=== PATIENT | female | born 1965 | race Caucasian/White ===

== ENCOUNTER → 2016-10-02 | Outpatient (CLI) | payer OTHER ==
--- NOTE | 2016-10-02 09:48 | WOMENS IMAGING REPORT ---
EXAM DESCRIPTION: BILAT SCREENING MAMMO W/CAD COMPLETED DATE/TIME: 10/02/2016 8:30 am REASON FOR STUDY: Z12.31, ROUTINE SCREENING MAMMO Z12.31 ENCNTR SCREEN MAMMOGRAM FOR MALIGNANT NEOP LASM OF JONAS COMPARISON: 09/29/2015 and 09/27/2014. TECHNIQUE: Standard craniocaudal and mediolateral oblique views of each breast recorded using digita l acquisition. LIMITATIONS: None. FINDINGS: No masses, calcifications or architectural distortion. No areas of suspicion. Read with the assistance of CAD. .[facility] - R2 Cenova Version 1.3 .[facility] - R2 Cenova Version 1.3 .[facility] - R2 Cenova Version 2.4 [place] [place] Cenova Version 2.4 .[facility] - R2 [employer] Version 9.2 IMPRESSION: NORMAL MAMMOGRAM. BIRADS 1. BREAST DENSITY: b. There are scattered areas of fibroglandular density. BIRAD: 1 NEGATIVE RECOMMENDATION: ROUTINE SCREENING COMMENT: The patient has been notified of the results by letter per MQSA requirements. Additional no tification policies are in place for contacting patient with suspicious or incomplete findings. Quality ID #225: The [employer] recommends an annual screening mammogram for women aged 40 years or over. This facility utilizes a reminder system to ensure that all patients receive reminder letters, and/or direct phone calls for appointments. This includes reminders for routine scr eening mammograms, diagnostic mammograms, or other Breast Imaging Interventions when appropriate. Th is patient will be placed in the appropriate reminder system. The [employer] (ACR) has developed recommendations for screening MRI of the breast s in certain patient populations, to be used in conjunction with mammography. Breast MRI surveillanc e may be appropriate for women with more than 20% lifetime risk of developing breast cancer as deter mined by genetic testing, significant family history of the disease, or history of mantle radiation f or Hodgkins Disease. ACR Practice Guidelines 2008. TECHNICAL DOCUMENTATION: FINDING NUMBER: (1) ASSESSMENT: (1) JOB ID: [id number] [employer]- All Rights Reserved
== END ==
LOC: WI 07:45
PROVIDERS: ATTEND Nurse Practitioner
DX: Z12.31 Encounter for screening mammogram for malignant neoplasm of breast (principal)
CPT/HCPCS: 77067; G0202

== ENCOUNTER → 2017-10-09 | Outpatient (CLI) | payer OTHER ==
--- NOTE | 2017-10-09 09:49 | WOMENS IMAGING REPORT ---
EXAM DESCRIPTION: BILAT SCREENING MAMMO W/CAD COMPLETED DATE/TIME: 10/09/2017 7:43 am REASON FOR STUDY: SCREENING MAMMO Z12.31 ENCNTR SCREEN MAMMOGRAM FOR MALIGNANT NEOPLASM OF JONAS COMPARISON: Multiple since 2008 TECHNIQUE: Standard craniocaudal and mediolateral oblique views of each breast recorded using digita l acquisition. LIMITATIONS: None. FINDINGS: No masses, calcifications or architectural distortion. No areas of suspicion. Read with the assistance of CAD. .[facility] - R2 Cenova Version 1.3 .[facility] Imaging - R2 Cenova Version 1.3 .[facility] - R2 Cenova Version 2.4 .[facility] [place] Cenova Version 2.4 .[facility] - R2 Senior Resident Care Director Version 9.2 IMPRESSION: NORMAL MAMMOGRAM. BIRADS 1. BREAST DENSITY: b. There are scattered areas of fibroglandular density. BIRAD: 1 NEGATIVE RECOMMENDATION: ROUTINE SCREENING Please continue yearly bilateral screening mammography/tomosynthesis in September 2018. COMMENT: The patient has been notified of the results by letter per SA requirements. Additional no tification policies are in place for contacting patient with suspicious or incomplete findings. Quality ID #[id number]: The [employer] recommends an annual screening mammogram for women aged 40 years or over. This facility utilizes a reminder system to ensure that all patients receive reminder letters, and/or direct phone calls for appointments. This includes reminders for routine scr eening mammograms, diagnostic mammograms, or other Breast Imaging Interventions when appropriate. Th is patient will be placed in the appropriate reminder system. The [employer] (ACR) has developed recommendations for screening MRI of the breast s in certain patient populations, to be used in conjunction with mammography. Breast MRI surveillanc e may be appropriate for women with more than 20% lifetime risk of developing breast cancer as deter mined by genetic testing, significant family history of the disease, or history of mantle radiation f or Hodgkins Disease. ACR Practice Guidelines 2008. TECHNICAL DOCUMENTATION: FINDING NUMBER: (1) ASSESSMENT: (1) JOB ID: [id number] [employer]- All Rights Reserved Reading location - IP/workstation name: [email or web address]
== END ==
LOC: WI 07:26
PROVIDERS: ATTEND Nurse Practitioner
DX: Z12.31 Encounter for screening mammogram for malignant neoplasm of breast (principal)
CPT/HCPCS: 77067

== ENCOUNTER 2019-08-23 18:27 | Observation (INO) | payer OTHER ==
--- NOTE | 2019-08-23 19:08 | ER Document Report ---
ED Medical Screen (RME) - General Chief Complaint: Abdominal Pain Stated Complaint: ABDOMINAL PAIN Time Seen by Provider: 08/23/19 19:04 Primary Care Provider: PALOMA LIU FNP [Primary Care Provider] - Follow up as needed Mode of Arrival: Ambulatory Information source: Patient Notes: Patient is a 54-year-old female comes emergency room complaining of abdominal pain and discomfort with vomiting. Patient states it started last evening after eating a [employer] hamburger that came with marcela lettuce. She had severe cramping all night long around 12:20 AM she took ibuprofen which did give her some relief but it came back during the night. She also states that it seems to be positional she can lay on her belly and it will move to the middle if she lays on her side and moves to the side opposite she is laying on. She denies having any history of surgeries in the abdomen in the past. She denies having any diarrhea her last normal bowel movement was this morning had no change in color. Patient only has a history of hypercholesterolemia. She does have a primary doctor but tonight she felt a little feverish took her temperature was 100.2 so he decided come in and get evaluated. Physical examination: Patient is a well-nourished well-developed 54-year-old female was no apparent distress on physical exam today. Cardiac: Regular rate and rhythm without any murmurs. Lungs: Bilateral breath sounds are present with increased clear to auscultation. Abdomen: Examination of the patient's abdomen in a sitting position shows some mild tenderness to palpation very nondistinctive but mostly mid epigastric and lower abdominal area bilaterally. I have greeted and performed a rapid initial assessment of this patient. A comprehensive ED assessment evaluation of the patient, analysis of the test results and completion of the medical decision-making process will be conducted by an additional ED provider. TRAVEL OUTSIDE OF THE [place] IN LAST 30 DAYS: No - Related Data Allergies/Adverse Reactions: No Known Allergies Allergy (Unverified 10/15/13 11:02) Past Medical History Pulmonary Medical History: Denies: Hx Tuberculosis Psychiatric Medical History: Denies: Hx Depression Past Surgical History: Reports: Hx Tubal Ligation Physical Exam - Vital signs Vitals: Temp Pulse Resp BP Pulse Ox 99.6 F 111 H 16 127/84 H 96 08/23/19 18:40 08/23/19 18:40 08/23/19 18:40 08/23/19 18:40 08/23/19 18:40 Course - Vital Signs Vital signs: Temp Pulse Resp BP Pulse Ox 99.6 F 111 H 16 127/84 H 96 08/23/19 18:40 08/23/19 18:40 08/23/19 18:40 08/23/19 18:40 08/23/19 18:40 Doctor's Discharge - Discharge Referrals: PALOMA LIU FNP [Primary Care Provider] - Follow up as needed
[2019-08-23 19:41] LABS: HEMATOCRIT 42.2 % (36.0-47.0); HEMOGLOBIN 14.6 g/dL (12.0-15.5); MEAN CORPUSCULAR HEMOGLOBIN 30.2 pg (27.0-33.4); MEAN CORPUSCULAR HGB CONC 34.6 g/dL (32.0-36.0); MEAN CORPUSCULAR VOLUME 87 fl (80-97); PLATELET COUNT 274 10^3/uL (150-450); RED BLOOD COUNT 4.84 10^6/uL (3.72-5.28); RED CELL DISTRIBUTION WIDTH 12.6 % (11.5-14.0); WHITE BLOOD COUNT 16.9 10^3/uL (4.0-10.5)
[2019-08-23 19:57] LABS: ALBUMIN 4.6 g/dL (3.5-5.0); ALKALINE PHOSPHATASE 97 U/L (38-126); ANION GAP 9 (5-19); ASPARTATE AMINO TRANSFERASE 77 U/L (14-36); BILIRUBIN,TOTAL 1.5 mg/dL (0.2-1.3); BLOOD UREA NITROGEN 11 mg/dL (7-20); CALCIUM 9.8 mg/dL (8.4-10.2); CARBON DIOXIDE 25 mmol/L (22-30); CHLORIDE 101 mmol/L (98-107); GLUCOSE 130 mg/dL (75-110); POTASSIUM 4.4 mmol/L (3.6-5.0); TOTAL PROTEIN 8.2 g/dL (6.3-8.2)
[2019-08-23 20:05] LABS: ABSOLUTE LYMPHOCYTES# (MANUAL) 0.7 10^3/uL (0.5-4.7); ABSOLUTE MONOCYTES # (MANUAL) 1.5 10^3/uL (0.1-1.4); BAND NEUTROPHILS % (MANUAL) 5 % (3-5); BASOPHILS % (MANUAL) 0 % (0-2); EOSINOPHILS % (MANUAL) 0 % (0-6); LYMPHOCYTES % (MANUAL) 4 % (13-45); MONOCYTES % (MANUAL) 9 % (3-13); SEGMENTED NEUTROPHILS % (MAN) 82 % (42-78); TOTAL CELLS COUNTED 100
[2019-08-23 20:06] LABS: PLATELET COMMENT ADEQUATE; RBC MORPHOLOGY COMMENT NORMO-CYTIC/CHROMIC
[2019-08-23 21:03] LABS: APPEARANCE,URINE CLEAR; BILIRUBIN,URINE NEGATIVE (NEGATIVE); COLOR,URINE YELLOW; GLUCOSE, URINE NEGATIVE (NEGATIVE); KETONES,URINE NEGATIVE (NEGATIVE); PROTEIN,URINE NEGATIVE (NEGATIVE); URINE SPECIFIC GRAVITY 1.009; UROBILINOGEN,URINE NEGATIVE mg/dL (<2.0)
--- NOTE | 2019-08-23 22:25 | RADIOLOGY REPORT (SQ) ---
EXAM DESCRIPTION: Contrast-enhanced CT scan of the abdomen and pelvis. CLINICAL HISTORY: 54 years Female; RLQ tenderness TECHNIQUE: CT of the abdomen and pelvis with intravenous contrast. Delayed imaging of the abdomen and pelvis was also performed. All CT scans at this facility use dose modulation, iterative reconstruction, and/or weight based dosing when appropriate to reduce radiation dose to as low as reasonably achievable. This exam was performed according to our department optimization program which includes automated exposure control, adjustment of the mA and/or kv according to patient size and/or use of iterative reconstruction technique. COMPARISON: CT scan of the abdomen and pelvis October 15, 2013 FINDINGS: Lower chest:The lung bases are clear. The visualized portion of heart and great vessels are normal. Abdomen: Liver and biliary tree:The liver and gallbladder appear normal. Portal vein and hepatic veins are patent. No biliary dilatation. Pancreas: Normal Spleen:Within normal limits Kidneys: Kidneys are normal in size, shape and position. No stones. No mass or hydronephrosis. Symmetric renal enhancement. On delayed images there is symmetric contrast excretion from the kidneys. Adrenal glands:Within normal limits Vascular structures:Within normal limits Retroperitoneum: No mass or lymphadenopathy Abdominal wall: normal GI:Bowel is of normal caliber. No focal bowel wall thickening. No obstruction. On the previous examination there was diffuse colitis. This has resolved. Appendix: Inflammation is identified surrounding the appendix and the appendix appears to be enlarged measuring 10 mm in diameter. This is consistent with acute appendicitis. There is no evidence of perforation or abscess. General: No free air. No free fluid Pelvis: Lymph nodes: No mass or lymphadenopathy Bladder: Unremarkable. Pelvis: No pelvic mass or adenopathy. Bones: Assuming five nonrib-bearing lumbar vertebral bodies there is a pars defect at L5 with grade 1 anterolisthesis. IMPRESSION: 1. Resolution of previously noted colitis. 2. Inflammation consistent with acute appendicitis. No evidence of perforation or abscess. THIS REPORT CONTAINS FINDINGS THAT MAY BE CRITICAL TO PATIENT CARE: The findings were verbally discussed via telephone conference with Dr. ELIZABETH RAMEY at 9:24 PM CDT on 08/23/2019 .
[2019-08-23] MEDS ORDERED: RINGERS SOLUTION,LACTATED 1,000 ML IV ONE (22:33)
[2019-08-23] MEDS ORDERED: METRONIDAZOLE 500 MG/NS RTU 500 MG/100 ML RTUPB IV ONE (23:00)
[2019-08-23] MEDS ORDERED: CEFTRIAXONE 1 GM/D5W RTU 1 GM/50 ML RTUPB IV ONE (23:00)
[2019-08-23] MEDS ORDERED: ONDANSETRON HCL INJ/PF 4 MG/2 ML SDV IV PRN (23:23)
[2019-08-23] MEDS ORDERED: DEXTROSE 5%-LACTATED RINGERS 1,000 ML IV PRN (23:23)
--- NOTE | 2019-08-23 23:33 | PDOC H&P ---
History of Present Illness Admission Date/PCP: MANJIT ESPINOSA Patient complains of: Periumbilical abdominal pain, radiating to the right lower quadrant History of Present Illness: JUAN J WILLINGHAM is a 54 year old female with a 1 day history of periumbilical abdominal pain. Her pain is sharp and stabbing. It has progressively worsened over the last 24 hours. Currently she rates it as 6 out of 10. The pain radiates into her right lower quadrant. The pain is worse with movement and palpation. She denies nausea, vomiting, fevers, chills, melena, hematochezia, chest pain, shortness of breath, dizziness, orthostasis. Past Medical History Cardiac Medical History: Reports: Hyperlipidema Pulmonary Medical History: Denies: Tuberculosis Psychiatric Medical History: Denies: Depression Past Surgical History Past Surgical History: Reports: Tubal Ligation Social History Smoking Status: Never Smoker Electronic Cigarette use?: No Frequency of Alcohol Use: None Hx Recreational Drug Use: No Hx Prescription Drug Abuse: No Family History Family History: Reviewed & Not Pertinent Parental Family History Reviewed: Yes Children Family History Reviewed: Yes Sibling(s) Family History Reviewed.: Yes Medication/Allergy Home Medications: Ondansetron [Zofran Odt 4 mg Tablet] 4 mg PO Q4HP PRN 10/15/13 Famotidine [Pepcid 20 mg Tablet] 20 mg PO Q12 #30 tablet 10/18/13 L.acidoph/L.bulg/B.bif/S.therm [Bacid Caplet] 1 tab PO BID #60 tablet 10/18/13 Metronidazole [Flagyl 500 mg Tablet] 500 mg PO Q6H #40 tablet 10/18/13 Oxycodone HCl/Acetaminophen [Percocet 5-325 mg Tablet] 1 tab PO Q6HP PRN #10 tablet 10/18/13 Promethazine HCl [Phenergan 25 mg Tablet] 25 mg PO Q6HP PRN #20 tablet 10/18/13 Promethazine HCl [Phenergan 25 mg Tablet] 1 - 2 tab PO Q6H PRN #15 tablet 01/27/15 Allergies/Adverse Reactions: No Known Allergies Allergy (Unverified 10/15/13 11:02) Review of Systems Constitutional: ABSENT: anorexia, chills, fatigue, fever(s), headache(s), weakness Eyes: ABSENT: visual disturbances Ears: ABSENT: hearing changes Nose, Mouth, and Throat: ABSENT: sore throat Cardiovascular: ABSENT: chest pain Respiratory: ABSENT: cough, dyspnea Gastrointestinal: PRESENT: abdominal pain. ABSENT: hematemesis, hematochezia, melena, nausea, vomiting Genitourinary: ABSENT: dysuria Musculoskeletal: ABSENT: back pain Integumentary: ABSENT: pruritus, rash Neurological: ABSENT: confusion, convulsions, dizziness Psychiatric: ABSENT: anxiety, depression Endocrine: ABSENT: cold intolerance, heat intolerance Hematologic/Lymphatic: ABSENT: easy bleeding, easy bruising Physical Exam Vital Signs: Temp Pulse Resp BP Pulse Ox 98.7 F 94 17 112/68 100 08/23/19 22:13 08/23/19 22:13 08/23/19 22:13 08/23/19 22:13 08/23/19 22:13 Intake & Output 08/22/19 08/23/19 08/24/19 06:59 06:59 06:59 Intake Total 50 Balance 50 Weight 74.4 kg General appearance: PRESENT: no acute distress, cooperative Head exam: PRESENT: atraumatic, normocephalic Eye exam: PRESENT: EOMI, PERRLA. ABSENT: scleral icterus Mouth exam: PRESENT: moist, neck supple Neck exam: ABSENT: meningismus, tenderness, thyromegaly, tracheal deviation Respiratory exam: PRESENT: unlabored. ABSENT: chest wall tenderness, tachypnea, wheezes Cardiovascular exam: ABSENT: tachycardia Pulses: PRESENT: normal radial pulses Vascular exam: PRESENT: normal capillary refill. ABSENT: pallor GI/Abdominal exam: PRESENT: soft, tenderness - Mild, right lower quadrant. ABSENT: distended, firm, rebound, rigid Rectal exam: PRESENT: deferred Extremities exam: ABSENT: clubbing Musculoskeletal exam: ABSENT: deformity Neurological exam: PRESENT: alert, awake, oriented to person, oriented to place, oriented to time, oriented to situation Psychiatric exam: ABSENT: agitated, anxious, depressed Focused psych exam: ABSENT: delusional Skin exam: ABSENT: cyanosis, erythema, jaundice Results Laboratory Results: 08/23/19 19:25 08/23/19 19:25 08/23/19 08/23/19 08/23/19 19:25 19:25 20:05 WBC 16.9 H RBC 4.84 Hgb 14.6 Hct 42.2 MCV 87 MCH 30.2 MCHC 34.6 RDW 12.6 Plt Count 274 Seg Neutrophils % Not Reportable Sodium 135.4 L Potassium 4.4 Chloride 101 Carbon Dioxide 25 Anion Gap 9 BUN 11 Creatinine 0.70 Est GFR ( Amer) > 60 Glucose 130 H Calcium 9.8 Total Bilirubin 1.5 H AST 77 H Alkaline Phosphatase 97 Total Protein 8.2 Albumin 4.6 Lipase 101.7 Urine Color YELLOW Urine Appearance CLEAR Urine pH 6.0 Ur Specific [place] 1.009 Urine Protein NEGATIVE Urine Glucose (UA) NEGATIVE Urine Ketones NEGATIVE Urine Blood NEGATIVE Impressions: Abdomen/Pelvis CT 08/23/19 21:32 IMPRESSION: 1. Resolution of previously noted colitis. 2. Inflammation consistent with acute appendicitis. No evidence of perforation or abscess. THIS REPORT CONTAINS FINDINGS THAT MAY BE CRITICAL TO PATIENT CARE: The findings were verbally discussed via telephone conference with Dr. ELIZABETH RAMEY at 9:24 PM CDT on 08/23/2019 . Assessment & Plan - Diagnosis (1) Acute appendicitis Qualifiers: Acute appendicitis type: unspecified acute appendicitis type Qualified Code(s): K35.80 - Unspecified acute appendicitis Is this a current diagnosis for this admission?: Yes - Plan Summary Plan Summary: This is a 54-year-old female with history, physical, CT scan, and laboratory evaluation consistent with acute appendicitis. I have reviewed her CT scan personally. There is thickening of the appendix. She has a leukocytosis. I have offered her surgical intervention for her acute appendicitis. She has agreed to this. Risks/benefits discussed, informed consent obtained, and all questions answered.
--- NOTE | 2019-08-24 00:15 | ER Document Report ---
ED General - General Chief Complaint: Abdominal Pain Stated Complaint: ABDOMINAL PAIN Time Seen by Provider: 08/23/19 19:04 Mode of Arrival: Ambulatory TRAVEL OUTSIDE OF THE [place] IN LAST 30 DAYS: No - HPI Notes: 54-year-old female history of hyperlipidemia presents with 2 days gradual onset periumbilical abdominal pain dysuria with bloating and few episodes of nonbilious nonbloody emesis without prior episodes, aggravating or alleviating factors, or radiation. Had distant bilateral tubal ligation. Patient denies diarrhea, constipation, melena, bright red blood per rectum, chest pain, back pain, urinary symptoms, vaginal symptoms, pelvic pain, fever - Related Data Allergies/Adverse Reactions: No Known Allergies Allergy (Unverified 10/15/13 11:02) Home Medications: b12, pravastatin Past Medical History - General Information source: Patient - Social History Smoking Status: Never Smoker Chew tobacco use (# tins/day): No Frequency of alcohol use: None Drug Abuse: None Family History: Reviewed & Not Pertinent Patient has homicidal ideation: No - Past Medical History Cardiac Medical History: Reports: Hx Hypercholesterolemia Pulmonary Medical History: Denies: Hx Tuberculosis Psychiatric Medical History: Denies: Hx Depression Past Surgical History: Reports: Hx Tubal Ligation Review of Systems - Review of Systems Notes: REVIEW OF SYSTEMS: CONSTITUTIONAL : Denies fever, chills, or sweats. EENT: Denies recent cold/sinus symptoms, denies throat pain CARDIOVASCULAR: Denies chest pain, DEMARIO RESPIRATORY: Denies cough, denies shortness of breath. GASTROINTESTINAL: + abdominal pain, +nausea/vomiting. GENITOURINARY: Denies difficulty urinating, painful urination. FEMALE GENITOURINARY: Denies abnormal vaginal bleeding, vaginal discharge. MUSCULOSKELETAL: Denies neck pain, back pain. SKIN: Denies rash or skin lesions. HEMATOLOGIC : Denies easy bruising or bleeding. LYMPHATIC: Denies swollen, enlarged glands. NEUROLOGICAL: Denies headache, denies change in gait. PSYCHIATRIC: Denies anxiety or stress or depression. Physical Exam - Vital signs Vitals: Temp Pulse Resp BP Pulse Ox 99.6 F 111 H 16 127/84 H 96 08/23/19 18:40 08/23/19 18:40 08/23/19 18:40 08/23/19 18:40 08/23/19 18:40 - Notes Notes: PHYSICAL EXAMINATION: GENERAL: Well-appearing, well-nourished and in no acute distress. HEAD: Atraumatic, normocephalic. EYES: Pupils equal round and appropriate constriction, sclera anicteric, conjunctiva are normal. ENT: nares patent, moist mucous membranes. NECK: Normal range of motion, supple without lymphadenopathy LUNGS: Breath sounds clear to auscultation bilaterally and equal. No wheezes rales or rhonchi. HEART: Regular rate and rhythm without murmurs ABDOMEN: Soft, +RLQ tenderness with guarding, no rebound, no masses, no CVAT EXTREMITIES: Normal range of motion, no pitting or edema. No cyanosis. NEUROLOGICAL: Awake, alert, conversing appropriately, moves all extremities spontaneously. PSYCH: Normal mood, normal affect. SKIN: Warm, Dry, normal turgor, no rashes or lesions noted. Course - Re-evaluation Re-evalutation: 08/24/19 00:12 Patient with tenderness at McBurney's point on exam, otherwise well-appearing, no acute surgical abdomen on exam. Work-up significant for leukocytosis of [address] without any signs of perforation or abscess. Gave antibiotics and consulted surgery who have accepted patient to their service. Patient remained stable in ED pending surgery. - Vital Signs Vital signs: Temp Pulse Resp BP Pulse Ox 99.1 F 70 12 111/76 100 08/24/19 02:46 08/24/19 03:01 08/24/19 03:01 08/24/19 03:01 08/24/19 03:01 - Laboratory Result Diagrams: 08/23/19 19:25 08/23/19 19:25 Laboratory results interpreted by me: 08/23/19 08/23/19 19:25 19:25 WBC 16.9 H Seg Neuts % (Manual) 82 H Lymphocytes % (Manual) 4 L Abs Neuts (Manual) 14.7 H Abs Monocytes (Manual) 1.5 H Sodium 135.4 L Glucose 130 H Total Bilirubin 1.5 H AST 77 H ALT 90 H Discharge - Discharge Clinical Impression: Acute appendicitis Qualifiers: Acute appendicitis type: unspecified acute appendicitis type Qualified Code(s): K35.80 - Unspecified acute appendicitis Disposition: ADMITTED INPATIENT [facility]: Surgical Floor
[2019-08-24] MEDS ORDERED: ONDANSETRON HCL INJ/PF 4 MG/2 ML SDV ONE (00:49)
[2019-08-24] MEDS ORDERED: MIDAZOLAM 2 MG/2 ML INJ ONE (00:49)
[2019-08-24] MEDS ORDERED: FENTANYL CITRATE INJ/PF 100 MCG/2 ML AMPUL ONE (00:49)
[2019-08-24] MEDS ORDERED: PROPOFOL INJ 200 MG/20 ML VIAL IV ONE (00:49)
[2019-08-24] MEDS ORDERED: DEXAMETHASONE SOD PHOSPHATE INJ 4 MG/1 ML VIAL ONE (00:49)
[2019-08-24] MEDS ORDERED: BUPIVACAINE HCL 0.25 % INJ/PF (2.5 MG/1 ML) 30 ML VIAL ONE (01:12)
[2019-08-24] MEDS ORDERED: MORPHINE SULFATE 10 MG/ML INJ IV PRN (01:59)
[2019-08-24] MEDS ORDERED: DIPHENHYDRAMINE HCL 50 MG/ML VIAL IV PRN (01:59)
[2019-08-24] MEDS ORDERED: MEPERIDINE HCL/PF INJ 25 MG/1 ML DISP.SYRIN IV PRN (01:59)
[2019-08-24] MEDS ORDERED: FENTANYL CITRATE INJ/PF 100 MCG/2 ML AMPUL IV PRN ×3 (01:59)
[2019-08-24] MEDS ORDERED: PROMETHAZINE HCL INJ 25 MG/1 ML VIAL IV PRN (01:59)
--- NOTE | 2019-08-24 02:39 | Operative Report ---
Nonrecallable Operative Report DATE OF SURGERY: 08/24/19 PREOPERATIVE DIAGNOSIS: Acute appendicitis POSTOPERATIVE DIAGNOSIS: Nonperforated, acute appendicitis OPERATION: Laparoscopic appendectomy SURGEON: JARED ROBLERO ANESTHESIA: GA TISSUE REMOVED OR ALTERED: Appendix COMPLICATIONS: None apparent ESTIMATED BLOOD LOSS: Minimal PROCEDURE: Drains/implants: None. Procedure in detail: After informed consent was obtained, the patient was brought to the operating room and laid in the supine position. The area of the abdomen was prepped and draped in a normal sterile fashion. An incision was created in the supraumbilical position using a 15 blade scalpel. Dissection was carried through the subcutaneous tissues using sharp and blunt dissection. The cicatrix was identified, grasped with a Williams clamp, and retracted upwards. The linea alba fascia was incised sharply, the abdomen was entered sharply. The balloon trocar was inserted, and pneumoperitoneum was achieved. A suprapubic 5 mm trocar was placed under direct laparoscopic visualization. Another left lower quadrant 5 mm trocar was placed in similar fashion. Atraumatic graspers were placed through the 5 mm ports. The appendix was easily identified. It was retracted anteriorly. The mesoappendix was taken down using the harmonic scalpel. PDS Endoloops were secured around the base of the appendix x2. The appendix was amputated using the harmonic scalpel. It was placed into an Endo Catch bag and pulled out through the umbilicus. The camera was reinserted. A small amount of inflammatory fluid was suctioned from the right lower quadrant. No irrigation was used. Hemostasis was ensured. Once this was completed, the 5 mm trochars were removed under direct laparoscopic visualization. The supraumbilical trocar was removed, and pneumoperitoneum was relieved. The supraumbilical fascia was closed using 0 Vicryl suture in [id number] fashion. The overlying skin was closed using 4-0 Vicryl Rapide suture in subcuticular fashion. Dressings were placed, and the procedure was concluded. All sponge, instrument, and needle counts were correct x2. Condition: Stable.
[2019-08-24] MEDS: MORPHINE SULFATE 10 MG/ML INJ IV PRN ×3 (04:47→20:43)
[2019-08-24] MEDS ORDERED: SUCCINYLCHOLINE CHLORIDE INJ 200 MG/10 ML VIAL ONE (10:01)
[2019-08-24] MEDS ORDERED: PHENYLEPHRINE HCL INJ/PF 10 MG/1 ML SDV ONE (10:01)
[2019-08-24] MEDS ORDERED: NEOSTIGMINE METHYLSULFATE 10 MG/10 ML VIAL ONE (10:01)
[2019-08-24] MEDS ORDERED: GLYCOPYRROLATE 1 MG/5 ML VIAL ONE (10:01)
[2019-08-24] MEDS ORDERED: KETOROLAC TROMETHAMINE 60 MG/2 ML SDV ONE (10:01)
[2019-08-24] MEDS ORDERED: ROCURONIUM BROMIDE INJ 50 MG/5 ML VIAL IV ONE (10:01)
[2019-08-25] MEDS: MORPHINE SULFATE 10 MG/ML INJ IV PRN (05:54)
[2019-08-25 15:32] VITALS: BP 108/64
== END 2019-08-25 16:03 | disposition home or self-care (01) ==
LOC: ER 18:27 → EH 23:55 → 3N 08-24 03:26
PROVIDERS: ATTEND Surgery
DX: K35.80 Unspecified acute appendicitis (principal); K38.8 Other specified diseases of appendix; R79.89 Other specified abnormal findings of blood chemistry; E78.5 Hyperlipidemia, unspecified; Z03.818 Encounter for observation for suspected exposure to other biological agents ruled out; Z98.51 Tubal ligation status
CPT/HCPCS: 99285; 96375; 96365; 96366; 96367; 36415; 87040; 83690; 85025; 87635; 80053; 81001; 88304 ×2; 74177; 99140; 00840; 44970; J2250; J3490 ×3; J1100; J1885; J3010; J2270 ×2; J2710; J2370; J0330; J2405; J7121; J7120; J2704; J0696; C9803; 840; G0378

== ENCOUNTER → 2019-10-15 | Outpatient (CLI) | payer OTHER ==
--- NOTE | 2019-10-15 11:00 | WOMENS IMAGING REPORT ---
EXAM DESCRIPTION: 3D SCREENING MAMMO BILAT IMAGES COMPLETED DATE/TIME: 10/15/2019 10:10 am REASON FOR STUDY: Z12.31 ENCNTR SCREEN MAMMOGRAM FOR MALIGNANT NEOPLASM OF BREAST Z12.31 ENCNTR SCR EEN MAMMOGRAM FOR MALIGNANT NEOPLASM OF JONAS COMPARISON: 2016 to 2018 EXAM PARAMETERS: Views: Standard craniocaudal and mediolateral oblique views of each breast recorded using digital acquisition and breast tomosynthesis. Read with the assistance of CAD. .[facility] - R2 Legal [employer]riber Version 9.2 LIMITATIONS: None. FINDINGS: No suspicious masses, suspicious calcifications or architectural distortion. No areas of c oncern. IMPRESSION: NEGATIVE MAMMOGRAM. BIRADS 1. BREAST DENSITY: b. There are scattered areas of fibroglandular density. BIRAD: ASSESSMENT: 1 NEGATIVE RECOMMENDATION: ROUTINE SCREENING COMMENT: The patient has been notified of the results by letter per MQSA requirements. Additional no tification policies are in place for contacting patient with suspicious or incomplete findings. Quality ID #[id number]: The [employer] recommends an annual screening mammogram for women aged 40 years or over. This facility utilizes a reminder system to ensure that all patients receive reminder letters, and/or direct phone calls for appointments. This includes reminders for routine scr eening mammograms, diagnostic mammograms, or other Breast Imaging Interventions when appropriate. Th is patient will be placed in the appropriate reminder system. TECHNICAL DOCUMENTATION: FINDING NUMBER: (1) ASSESSMENT: (1) JOB ID: [id number] 2010 [employer]- All Rights Reserved Reading location - IP/workstation name: [email or web address]
== END ==
LOC: WI 09:40
PROVIDERS: ATTEND Nurse Practitioner
DX: Z12.31 Encounter for screening mammogram for malignant neoplasm of breast (principal)
CPT/HCPCS: 77063; 77067